=== PATIENT | female | born 2000 | race Asian ===

== ENCOUNTER 2023-08-06 12:43 | Inpatient (IN) | payer BC, SELFPAY ==
--- NOTE | 2023-08-06 12:52 | MHC.CARE ---
CARE Team received a call from Bob Mccabe ?from [facility] ([phone]), ? regarding an expect Sara Wymansixot (she/they) . Pt is a international student from [place]. Pt has been active with the counseling center? over the past 2-3 years. Pt is being followed by a clinician Traci for the past 2 years.? Pt sees her 1-2 times weekly. Pt has chronically struggled with suicidality. Notably over the past few weeks Pt has been increasing suicidal and Traci no longer feels like she can mange the severity of the suicidality. Pt has not been caring for themselves, not showering, eating or? bathing. Pt? friends took away her sharps to the extent of her current depressive symptoms.? Precipitating factor appears to be Pt is graduating in September and has no plans following graduation and feels alot of uncertainty.? Pt is reporting to [facility] staff she voluntary for IPLOC admission.
--- NOTE | 2023-08-06 12:57 | ED.PSYCH ---
HPI - Psych General Chief Complaint: Psychiatric Symptoms Stated Complaint: PSYCH EVAL Time Seen by Provider: 08/06/23 12:48 Source: patient, EMS and RN notes reviewed Mode of arrival: EMS Limitations: no limitations History of Present Illness HPI Narrative: Patient is a 22-year-old female presenting to the emergency department from [facility] with thoughts of suicidal ideation, states she has a plan but is not willing to disclose this. Reports history of depression and suicidal ideation in the past around 1 year ago. She states that she does not currently have a therapist and is not currently on any medications, states she is never taken any psychiatric medications in the past. She denies any homicidal ideation, auditory or visual hallucinations. She denies any physical complaints. She denies any ingestion or self-inflicted injuries. MD complaint: suicidal ideation and feels depressed Onset (ago): day(s) Duration: constant History of same: Yes Associated psychiatric symptoms: depression Associated symptoms: denies other symptoms Treatments prior to arrival: none If self harm: admits thoughts of self harm and has plan (unwilling to disclose details) Related Data Home Medications Medication Instructions Recorded Confirmed No Known Home Meds 08/06/23 08/06/23 Allergies Allergy/AdvReac Type Severity Reaction Status Date / Time No Known Allergies Allergy Verified 08/06/23 13:15 Review of Systems Review of Systems: As per HPI. Yes all other systems are reviewed and are negative Constitutional: Constitutional: Reports as per HPI [facility] Social History Social History (Updated 08/06/23 @ 17:30 by NOELLE De La O) Household Members: Other Household Members Other:: Roommates Housing: Other Housing Other:: Dorm Are you a primary respiratory care program director to a significant other at home: No Do you presently have visiting nurse or other home services: No Smoked in Last 30 Days: No Use of substances other than those prescribed or required for medical reasons: No Advance Directives: No Suicidal Behavior: Pre-occupation with Access to Firearms: No Eating poorly because of decreased appetite: Yes service: No Current occupational status: student Physical Exam Vital Signs: Vital Signs: Last Vital Signs Temp 98.4 F 08/07/23 03:46 Pulse 79 08/07/23 03:46 Resp 16 08/07/23 03:46 BP 100/62 08/07/23 03:46 Pulse Ox 98 08/07/23 03:46 O2 Del Method Room Air 08/07/23 03:46 BMI result Body Mass Index 17.2 Vital signs have been reviewed and appear to be correct. Blood pressure normal. Heart rate normal. Respiratory rate normal. Temperature normal. Oxygen saturation normal. Const: General: cooperative, healthy appearing and no acute distress Orientation/consciousness: oriented to person, oriented to place, oriented to time and patient oriented x3 Limitations: no limitations HEENT: Head: Yes normocephalic and Yes atraumatic Ears: external ears normal General nose exam: Normal external nose present Face and sinus: Yes face symmetric Mouth: oropharynx normal and moist mucous membranes Throat: Yes uvula midline Eyes: Pupils: Equal, round and reactive pupils present Neck: Neck: Yes normal visual inspection and Yes supple Resp: Effort & Inspection: normal respiratory effort and able to speak in complete sentences Auscultation: clear to auscultation bilaterally Cardio: Rate: regular rate Rhythm: regular rhythm Heart sounds: S1 normal heart sound present and S2 normal heart sound present GI: Palpation (GI): Soft to palpation and nontender Auscultation: normoactive bowel sounds : General: Yes no CVA tenderness Back/Spine/Pelvis: Back: no CVA tenderness Skin: General skin exam: elasticity normal and turgor normal Neuro: General: oriented to person, oriented to place, oriented to time, patient oriented x3, moves all extremities, no focal motor deficits and CN's II-XI intact bilaterally Cranial nerves: Yes Equal, round and reactive pupils present Cognition (Neuro): normal cognition Extrem: General: Yes full ROM, Yes no pedal edema and Yes no calf tenderness Psych: Appearance: grossly normal Mental Status: mental status grossly normal Speech and movement: Normal speech and movement present Affect: normal affect Attitude: cooperative Thought process: Normal thought process present Thought content: Suicidality present, no homicidality, no hallucinations and Depressive thoughts present Insight: Fair insight present (Psych) Judgement: Fair judgement present (Psych) Course Reevaluation(s) Reevaluation #1: Per CARE team, patient to be inpatient bed search on Section 12 Time: 15:55 Reevaluation #2: The patient was signed out to me this morning by the overnight physician. The patient is a 22-year-old female who was a student at [facility] she was brought to the hospital because of concerns about suicidal ideation. She is apparently unwilling to talk about her plans for suicide. She is therefore being held in the emergency room on a section 12. During the overnight shift and during the day shift today there have been no acute incidents. Her vital signs are stable. She will be kept in the emergency room on a section 12 pending inpatient psychiatric hospitalization. Medical Decision Making Medical Decision Making [facility] Narrative: Patient is a 22-year-old female presenting to the emergency department from [facility] with thoughts of suicidal ideation, states she has a plan but is not willing to disclose this. On exam patient is awake, A+Ox3, VS WNL, afebrile, normal neurological exam without focal deficits, physical exam findings as above. Given reported symptoms and physical exam findings, initial differential includes depression, anxiety, suicidal ideation. Plan: labs, UA, urine drug screen to clear medically prior to CARE team eval Labs unremarkable. Covid negative. Urine drug screen negative. Will medically clear patient and place on physician observation at this time for CARE team eval. Differential Diagnosis Differential Diagnoses: The differential diagnosis associated with the presentation includes As per [facility] Lab Data [facility] Lab Attestation statement: I reviewed the patient's lab results. As per [facility] 08/06/23 14:19 08/06/23 14:19 Labs: Lab Results 08/06/23 08/06/23 08/06/23 Range/Units 13:28 13:30 14:19 WBC 7.6 (4.8-10.8) X10*3/uL RBC 5.12 (4.20-5.50) X10*6/uL Hgb 15.2 (12.0-16.0) g/dl Hct 44.5 (37.0-47.0) % MCV 86.9 (80.0-98.0) fL MCH 29.7 (27.0-33.0) pg MCHC 34.2 (31.0-35.0) g/dl RDW 11.7 (11.0-16.0) % Plt Count 220 (160-400) X10*3/uL MPV 10.0 (9.4-12.3) fL Immature Gran % (Auto) 0.4 (0.0-0.4) % Neut % (Auto) 77.0 H (45-73) % Lymph % (Auto) 18.1 L (20-40) % [place] % (Auto) 3.4 (2-11) % Eos % (Auto) 0.8 (0-4) % Baso % (Auto) 0.3 (0-2) % Lymph # (Auto) 1.4 (1.2-4.9) X10*3/uL [place] # (Auto) 0.3 (0.1-1.2) X10*3/uL Eos # (Auto) 0.1 (0.0-0.4) X10*3/uL Baso # (Auto) 0.0 (0.0-0.2) X10*3/uL Abs Immat Gran (auto) 0.03 (0.00-0.03) X10*3/uL Absolute Neuts (auto) 5.8 (2.0-8.3) x10*3/uL Absolute Nucleated RBC 0.000 (0.0-0.012) X10*3/uL Nucleated RBC % (auto) 0.0 (0.0-0.2) /100WBC Sodium 138 (135-145) mmol/L Potassium 3.7 (3.3-5.1) mmol/L Chloride 104 (96-108) mmol/L Carbon Dioxide 28 (22-29) mmol/L Anion Gap 10 L (12-20) BUN 9 (9-16) mg/dL Creatinine 0.65 (0.5-1.4) mg/dL Estim Creat Clear Calc 85.7 Estimated GFR > 60 Random Glucose 148 H (60-115) mg/dL Calcium 10.2 (8.4-10.2) mg/dL Total Bilirubin 0.9 (0.0-1.0) mg/dL AST 15 (5-31) U/L ALT 7 (0-31) U/L Alkaline Phosphatase 61 (39-117) U/L Total Protein 8.2 H (6.5-8.0) g/dL Albumin 4.7 (3.5-5.0) g/dL Beta HCG, Quant < 2 mIU/mL Urine Color Yellow Urine Appearance Clear Urine pH 5.5 (5.0-9.0) Ur Specific [place] 1.025 (1.005-1.025) Urine Protein Negative (Neg-Trace) mg/dL Urine Glucose (UA) Negative (Negative) mg/dL Urine Ketones Trace (Negative) mg/dL Urine Blood Negative (Negative) Urine Nitrite Negative (Negative) Ur Leukocyte Esterase Trace H (Negative) Urine RBC 0-2 (0-2) /HPF Urine WBC 0-5 (0-5) /HPF Ur Squamous Epith Cells 3-5 (0-2) /HPF Urine Bacteria None Seen (None Seen) Hyaline Casts 0-2 (0-2) /LPF Salicylates < 5.0 L (15-30) mg/dL Urine Opiates Screen Not Detected (Not Detect) Urine Fentanyl Screen Not Detected (Not Detect) Acetaminophen < 3 (<30) mcg/mL Ur Barbiturates Screen Not Detected (Not Detect) Ur Phencyclidine Scrn Not Detected (Not Detect) Ur Amphetamines Screen Not Detected (Not Detect) U Benzodiazepines Scrn Not Detected (Not Detect) Urine Cocaine Screen Not Detected (Not Detect) U Marijuana (THC) Screen Not Detected (Not Detect) Ethyl Alcohol < 10 mg/dL COVID-19 (MAGEN) Negative (Negative) COVID-19 Clin Com See Note External Record Review External record reviewed: Inpatient record, Office record and Outpatient record Discharge Plan Discharge Clinical Impression: Suicidal ideation, Depression Patient Disposition: Still a Patient Prescriptions: No Action No Known Home Meds Interventions: Isabella-Suicide Risk Severity Scale Last Done: 08/07/23 07:38
[2023-08-06 13:06] VITALS: BP 100/69; BP 118/72; PULSE 88; PULSE 96; RESP 16; TEMP 36.7; O2SAT 97; O2SAT 99; BMI 17.2
[2023-08-06 13:41] LABS: Appearance Urine Clear; Color Urine Yellow; Glucose Urine UA Negative (Negative); Leukocyte Esterase Urine Trace (Negative); Nitrite Urine Negative (Negative); PH 5.5 (5.0-9.0); Specific Gravity - Urine 1.025 (1.005-1.025); UMIC TRIGGER UACC YES; Urine Blood Negative (Negative); Urine Ketones Trace mg/dL (Negative); Urine Protein Negative (Neg-Trace)
[2023-08-06 13:47] LABS: Amphetamine Screen Urine Not Detected (Not Detect); Barbiturates, Urine Not Detected (Not Detect); Benzodiazepines Screen Urine Not Detected (Not Detect); Cannabinoid Screen Urine Not Detected (Not Detect); Cocaine Screen Urine Not Detected (Not Detect); Fentanyl, urine Not Detected (Not Detect); Opiate Screen Urine Not Detected (Not Detect); Phencyclidine Screen Urine Not Detected (Not Detect)
[2023-08-06 13:50] LABS: COVID-19 Test Negative (Negative); IDNOW Serial# 08D9AD1C
[2023-08-06 13:55] LABS: Bacteria Urine None Seen (None Seen); Hyaline Casts Urine 0-2 /LPF (0-2); RBC Urine 0-2 /HPF (0-2); WBC Urine 0-5 /HPF (0-5)
[2023-08-06 14:25] LABS: MANUAL DIFF FLAG NO
[2023-08-06 14:35] LABS: Basophils Percent Auto 0.3 % (0-2); Eosinophils Absolute Auto 0.1 X10*3/uL (0.0-0.4); Eosinophils Percent Auto 0.8 % (0-4); Hematocrit 44.5 % (37.0-47.0); Hemoglobin 15.2 g/dl (12.0-16.0); Imm Gran Abs Auto 0.03 X10*3/uL (0.00-0.03); Imm Gran Pct Auto 0.4 % (0.0-0.4); Lymphocytes Absolute Auto 1.4 X10*3/uL (1.2-4.9); Lymphocytes Percent Auto 18.1 % (20-40); Mean Corpuscular HGB Conc 34.2 g/dl (31.0-35.0); Mean Corpuscular Hemoglobin 29.7 pg (27.0-33.0); Mean Corpuscular Volume 86.9 fL (80.0-98.0); Monocytes Absolute Auto 0.3 X10*3/uL (0.1-1.2); Monocytes Percent Auto 3.4 % (2-11); Neutrophils Absolute Auto 5.8 x10*3/uL (2.0-8.3); Platelet Count 220 X10*3/uL (160-400); Red Blood Count 5.12 X10*6/uL (4.20-5.50); Red Cell Distribution Width 11.7 % (11.0-16.0); White Blood Count 7.6 X10*3/uL (4.8-10.8)
[2023-08-06 14:49] LABS: HCG Quantitative < 2 mIU/mL
[2023-08-06 14:58] LABS: Acetaminophen LAB < 3 mcg/mL (<30); Alanine Aminotransferase 7 U/L (0-31); Albumin Level 4.7 g/dL (3.5-5.0); Alkaline Phosphatase 61 U/L (39-117); Anion Gap 10 (12-20); Aspartate Amino Transferase 15 U/L (5-31); Bilirubin Total 0.9 mg/dL (0.0-1.0); Blood Urea Nitrogen 9 mg/dL (9-16); Calcium 10.2 mg/dL (8.4-10.2); Carbon Dioxide 28 mmol/L (22-29); Chloride 104 mmol/L (96-108); Creatinine Clr Calc Pharmacy 85.7; Estimated Glomerular Filt Rate > 60; Ethanol < 10 mg/dL; Glucose Random 148 mg/dL (60-115); Potassium 3.7 mmol/L (3.3-5.1); Salicylate < 5.0 mg/dL (15-30); Sodium 138 mmol/L (135-145); Total Protein 8.2 g/dL (6.5-8.0)
--- NOTE | 2023-08-06 16:51 | PC.NURSE ---
pt a&o x4, calm, and cooperative. pt comes from [facility] where pt has been having recent thoughts of SI with plan. when asked about plan, pt sts she does not want to talk about it and that she has attempted suicide in the past, about a year ago. pt changed over to hospital attire, belongings list complete and belongings stowed in locker #2. plan per Silvana is that pt will be a bed search. pt currently resting quietly in room, no distress noted. rr even/unlabored. plan of care ongoing.
--- NOTE | 2023-08-06 17:45 | MHC.CARE ---
CARE Team evaluation complete. Pt is an inpatient bedsearch on a section 12 for safety. ED provider, POD RN and Pt are aware of disposition.
[2023-08-06 21:48] VITALS: BP 103/70; PULSE 86; RESP 18; TEMP 37.4; O2SAT 98
[2023-08-06 23:11] VITALS: BP 98/64; PULSE 85; TEMP 36.4; O2SAT 99
--- NOTE | 2023-08-07 03:08 | PC.NURSE ---
Assumed care of pt at 0300. PT resting quietly, reading, respirations even and unlabored. Plan of care ongoing
[2023-08-07 03:46] VITALS: BP 100/62; PULSE 79; RESP 16; TEMP 36.9; O2SAT 98
--- NOTE | 2023-08-07 08:21 | PC.NURSE ---
Assumed care of patient at 0700, patient appears to be sleeping, respirations even and unlabored, no apparent distress. Continue plan of care form Sec 12 inpatient bedsearch
--- NOTE | 2023-08-07 13:04 | PC.NURSE ---
Patient ambulating around BH pod without issue, respirations even and unlabored, no apparent distress. Offers no complaints to this RN. Patient is calm and cooperative, continues to endorse SI, aware of plan of care
--- NOTE | 2023-08-07 14:04 | MHC.CARE ---
patient seen for mental status update/ ongoing CARE assessment , continues to appear to meet inpt LOC and at time of t/w is voluntary for inpatient.
[2023-08-07 20:08] VITALS: BP 107/74; PULSE 100; RESP 15; TEMP 36.8; O2SAT 100
--- NOTE | 2023-08-07 20:27 | PC.NURSE ---
patient appears to remain at rest periodically makes requests of staff for recreational materials. patient appears in no distress.
[2023-08-07 23:33] VITALS: BP 107/70; PULSE 75; RESP 16; TEMP 37.1; O2SAT 100
--- NOTE | 2023-08-08 08:21 | PC.NURSE ---
Assumed care of patient at 0700, patient appears to be sleeping, respirations even and unlabored, no apparent distress noted. Continue plan of care for inpatient bedsearch on Sec 12
[2023-08-08 09:23] VITALS: BP 108/78; PULSE 92; RESP 12; TEMP 36.5; O2SAT 98
[2023-08-08 12:06] VITALS: BP 92/66; PULSE 98; RESP 18; TEMP 36.4; O2SAT 97
--- NOTE | 2023-08-08 12:10 | PC.NURSE ---
Pt arrived on the unit a 11:35 from our pod. Pt calm and cooperative. Vitals taken, skin check done. Pt oriented to the unit, filled out lunch menu and sat in the kitchen with peers.
--- NOTE | 2023-08-08 12:23 | PC.NURSE ---
Patient is a non-smoker and will not require Respiratory consult.
--- NOTE | 2023-08-08 17:18 | PC.ADMIT ---
Sara was admitted to [facility] at 11:35 from the [facility] behavioral health POD on CV for treatment of SI with a plan and poor self care. 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 Pt is slated to graduate this May however disclosed that she may not be able to due to grades. PT disclosed to a therapist on campus her intent and help was called. Pt is alert and oriented, calm and cooperative and open to treatment before depressive and SI become unmanageable. Patient is concerned about her parents reaction to difficulties in school and with mental health. Patient has insight into her situation, is aware of decline in appetite and self care, as well as SI and desires treatment. Patient has no previous mental health treatment or hospitalizations, has no current medications, drinks alcohol socially approximately 1x per month. Patient reports decline in appetite and nausea upon eating and trouble following through with ADL's, (poor hygiene, oral health). Patient oriented to the unit and placed on 15 minute checks for safety.
[2023-08-08 21:25] VITALS: BP 113/85; PULSE 88; RESP 16; TEMP 36.7; O2SAT 99
[2023-08-09 07:30] VITALS: BP 88/55; PULSE 92; RESP 18; TEMP 36.1; O2SAT 92
[2023-08-09 07:32] LABS: Cholesterol 166 mg/dL (<200); HDL Cholesterol 56 mg/dL (>40); LDL Cholesterol Calculated 104 mg/dL (<100); Magnesium 2.1 mg/dL (1.6-2.6); Triglycerides 32 mg/dL (<150)
[2023-08-09 07:37] LABS: Estimated Average Glucose 88 mg/dL; Hemoglobin A1c % 4.7 % (<6.0)
[2023-08-09 07:46] LABS: Free T4 (Free Thyroxine) 0.91 ng/dL (0.71-1.85); Thyroid Stimulating Hormone 1.86 uIU/mL (0.32-4.0)
[2023-08-09 07:58] LABS: Folate 8.2 ng/mL (> or = 4.0); Vitamin B12 378 pg/mL (200-900)
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
[2023-08-09] MEDS: Escitalopram Oxalate 10 MG TABLET PO (10:28)
[2023-08-09 16:17] VITALS: BP 102/63; PULSE 77; RESP 16; TEMP 36.1; O2SAT 99
[2023-08-10] MEDS: traZODone HCL 50 MG TABLET PO (00:09)
--- NOTE | 2023-08-10 02:42 | PC.NURSE ---
Sara signed at three-day notice on 08/10/23 at 0055 witnessed by this magazine writer. Messages have been left for the provider (Dr. Villa), social media community manager (Gi Patterson), and military education coordinator (Gi Whyte) informing them of the change in legal status.
[2023-08-10 08:00] VITALS: BP 97/54; PULSE 93; RESP 16; TEMP 36.7; O2SAT 97
--- NOTE | 2023-08-10 09:19 | HO.PSYCHPN ---
Subjective Subjective Date of Service: 08/10/23 Reason For Visit: Depression with SI Subjective Notes: Conditional Voluntary and 3 Day Healthcare Proxy: No Guardianship: No Medical Problems Affecting Mental Status: No Interim History: Patient was seen and reviewed in rounds today. Records and plans were reviewed. She has settled in to the unit however she signed a 3 day notice last evening. We did talk about that and she will think about retracting it. She denies any side effects to the Lexapro. Eating and sleeping adequately. No active SI. No changes were made today Medication Compliance: Yes Side effects from medications: No Attending Groups: Yes Review of Systems Review of Systems Yes all other systems are reviewed and are negative Mental Status Exam Mental Status Exam Narrative: In today's visit she is alert, oriented and pleasant. Normal speech. Better eye contact. Affect is appropriate and subdued. No signs of psychosis. No active SI but vague SI. Cognitively intact. Judgment is intact Diagnostics Vital Signs (24Hr): Vital Signs - 24 hr 08/09/23 16:17 08/10/23 08:00 Temperature 97 F 98.1 F Pulse Rate 77 93 Respiratory Rate 16 16 Blood Pressure 102/63 97/54 L Pulse Oximetry 99 97 Oxygen Delivery Method Room Air Room Air BMI result Body Mass Index 17.2 Labs 08/06/23 14:19 08/06/23 14:19 Labs: Laboratory Results - last 48 hr 08/09/23 07:05 Estimat Average Glucose 88 Hemoglobin A1c % 4.7 Magnesium 2.1 Triglycerides 32 Cholesterol 166 LDL Cholesterol, Calc 104 H HDL Cholesterol 56 Vitamin B12 378 Folate 8.2 TSH 1.86 Free T4 0.91 Medications Medications Current Medications Acetaminophen (Acetaminophen 325 Mg Tablet) 650 mg PO Q6H PRN PRN Reason: Headache/Pain Mild Scale (1-3) Al Hydroxide/Mg Hydroxide (Magnesium Hydrox/Alum Hydrox 30 Ml Oral.Susp) 30 ml PO Q6H PRN PRN Reason: Heartburn/Nausea Hydroxyzine HCl (Hydroxyzine Hcl 25 Mg Tablet) 25 mg PO Q6H PRN PRN Reason: Anxiety Magnesium Hydroxide (Milk Of Magnesia 30 Ml Oral.Susp) 30 ml PO DAILY PRN PRN Reason: Constipation Trazodone HCl (Trazodone Hcl 50 Mg Tablet) 50 mg PO BEDTIME MRX1 PRN PRN Reason: Insomnia Last Admin: 08/10/23 00:09 Dose: 50 mg Allergies Allergies Allergy/AdvReac Type Severity Reaction Status Date / Time No Known Allergies Allergy Verified 08/06/23 13:15 Assessment & Plan Assessment & Plan (1) Depression: Status: Acute Code(s): F32.A - Depression, unspecified (2) Suicidal ideation: Status: Acute Code(s): R45.851 - Suicidal ideations Plan Sara is admitted and meets criteria for IP LOC for safety and treatment. She has signed a CV which was accepted. We discussed medications and is interested in a trial of Celexa 10 mg which will be initiated. Side effects were reviewed. Contacts to be made with the collagen her therapist. She will meet with her treatment team on 08/11/23 08/10/2023: Continue current regimen and plans. A 3 day notice was signed last evening Patient educated on: medication risk/benefits Reason for continued inpatient stay Substantial Risk for: harm to self Time Spent With Patient Time: Total time managing care of this patient today ____ minutes.
[2023-08-10] MEDS: Escitalopram Oxalate 10 MG TABLET PO (10:21)
[2023-08-10 17:00] VITALS: BP 102/55; PULSE 88; RESP 16; TEMP 36.3; O2SAT 98
[2023-08-11 07:30] VITALS: BP 111/60; PULSE 76; RESP 18; TEMP 36.4; O2SAT 98
[2023-08-11] MEDS: Escitalopram Oxalate 10 MG TABLET PO (08:35)
--- NOTE | 2023-08-11 17:26 | HO.PSYCHPN ---
Subjective Subjective Date of Service: 08/11/23 Reason For Visit: Depression with SI Subjective Notes: Conditional Voluntary and 3 Day Healthcare Proxy: No Guardianship: No Medical Problems Affecting Mental Status: No Interim History: Reports lifelong depressive sx, has always thought that others hate them, thoughts come in and they can focus so no other thoughts can enter. Describes eating, sleeping, ADL attention, basic functional tasks with empty space which is not good for them. I cannot have anything that leaves my head blank. States they have to go until they cannot any longer and blanks out. Has tried journaling, coloring, art projects, meditation, exercise, martial arts-nothing is helpful. Acknowledges racing thoughts which are overwhelming most of the time. Discussed current course work. Has a class where they had one paper due on the day they were admitted with another due shortly. Another class where a paper was due a week before admit and one class where they are missing everything. 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 They will allow contact with their academic team. Review of meds, discussed adding Lamictal to assist with racing thoughts, antipsychotic may be necessary,however we can trial this first which they agree with. Medication Compliance: Yes Side effects from medications: No Attending Groups: Intermittent Review of Systems Acute medical concerns: No Medical Review of Systems: unchanged Review of Systems Review of Systems Yes all other systems are reviewed and are negative Mental Status Exam Mental Status Exam Patient Appearance: Fatigued Patient Orientation: Person, Place, Time and Situation Level of Consciousness: Alert Patient Behavior: Appropriate, Talkative, Cooperative, Isolative and Good Eye Contact Mood Description: Depressed Affect Description: Flat Patient Cognition Impaired: No Ability to Follow Directions: Good Speech Pattern: Perseverating, Spontaneous Speech and Soft-Spoken Memory Description: Intact Hallucinations: Auditory (tells team yes, her voice telling her things) Perceptual Disturbances: Depersonalization Thought Process: Rumination Thought Content: positive for Circumstantial, positive for Perseveration, positive for Preoccupation and positive for Suicidal Ideation Depressive Symptoms: Difficulty Sleeping (latency), Hopelessness, Unhappiness, Thoughts of /Suicide and Low Self Esteem Judgement: Fair Diagnostics Vital Signs (24Hr): Vital Signs - 24 hr 08/11/23 07:30 Temperature 97.5 F Pulse Rate 76 Respiratory Rate 18 Blood Pressure 111/60 Pulse Oximetry 98 Oxygen Delivery Method Room Air BMI result Body Mass Index 17.2 Labs 08/06/23 14:19 08/06/23 14:19 Medications Medications Current Medications Acetaminophen (Acetaminophen 325 Mg Tablet) 650 mg PO Q6H PRN PRN Reason: Headache/Pain Mild Scale (1-3) Al Hydroxide/Mg Hydroxide (Magnesium Hydrox/Alum Hydrox 30 Ml Oral.Susp) 30 ml PO Q6H PRN PRN Reason: Heartburn/Nausea Escitalopram Oxalate (Escitalopram Oxalate 10 Mg Tablet) 10 mg PO DAILY [facility] Last Admin: 08/11/23 08:35 Dose: 10 mg Hydroxyzine HCl (Hydroxyzine Hcl 25 Mg Tablet) 25 mg PO Q6H PRN PRN Reason: Anxiety Magnesium Hydroxide (Milk Of Magnesia 30 Ml Oral.Susp) 30 ml PO DAILY PRN PRN Reason: Constipation Trazodone HCl (Trazodone Hcl 50 Mg Tablet) 50 mg PO BEDTIME MRX1 PRN PRN Reason: Insomnia Last Admin: 08/10/23 00:09 Dose: 50 mg Allergies Allergies Allergy/AdvReac Type Severity Reaction Status Date / Time No Known Allergies Allergy Verified 08/06/23 13:15 Assessment & Plan Assessment & Plan (1) Depression: Status: Acute Code(s): F32.A - Depression, unspecified (2) Suicidal ideation: Status: Acute Code(s): R45.851 - Suicidal ideations Plan Sara is admitted and meets criteria for IP LOC for safety and treatment. She has signed a CV which was accepted. We discussed medications and is interested in a trial of Celexa 10 mg which will be initiated. Side effects were reviewed. Contacts to be made with the [facility] her therapist. She will meet with her treatment team on 08/11/23 08/10/2023: Continue current regimen and plans. A 3 day notice was signed last evening 08/11/23: Continue Lexapro. Lamictal 25 mg HS. Patient educated on: medication risk/benefits Informed Consent: understands and further education needed Reason for continued inpatient stay Substantial Risk for: rapid decompensation Time Spent With Patient Time: Total time managing care of this patient today ____ minutes.
[2023-08-11 18:00] VITALS: BP 119/89; PULSE 88; RESP 18; TEMP 36.8; O2SAT 97
[2023-08-11] MEDS: lamoTRIgine 25 MG TABLET PO (21:05)
[2023-08-12 07:58] VITALS: BP 95/56; PULSE 91; RESP 18; TEMP 36.3; O2SAT 98
[2023-08-12] MEDS: Escitalopram Oxalate 10 MG TABLET PO (09:06)
--- NOTE | 2023-08-12 09:56 | P.PNPSI_ITS ---
Subjective Subjective Date of Service: 08/12/23 Reason For Visit: Depression with SI Subjective Notes: Conditional Voluntary and 3 Day Healthcare Proxy: No Guardianship: No Medical Problems Affecting Mental Status: No Interim History: Pt discussed wanting to leave on a TDN which expires on 08/12. 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 She wants to return to do course work. Reports no real change in depressive or anxious sx, however, today, feels more anxious and on edge. Tolerating medications she reports. Team is in contact with family/university. Pt was asked to reformulate her plan of care and we will continue discussion. Reports SI is persistant without changes. Medication Compliance: Yes Side effects from medications: No Attending Groups: Intermittent Review of Systems Acute medical concerns: No Medical Review of Systems: unchanged Review of Systems Review of Systems Yes all other systems are reviewed and are negative Mental Status Exam Mental Status Exam Patient Appearance: Fatigued Patient Orientation: Person, Place, Time and Situation Level of Consciousness: Alert Patient Behavior: Appropriate, Talkative, Cooperative, Isolative and Good Eye Contact Mood Description: Depressed Affect Description: Flat Patient Cognition Impaired: No Ability to Follow Directions: Good Speech Pattern: Perseverating, Spontaneous Speech and Soft-Spoken Memory Description: Intact Hallucinations: Auditory (tells team yes, her voice telling her things) Perceptual Disturbances: Depersonalization Thought Process: Rumination Thought Content: positive for Circumstantial, positive for Perseveration, positive for Preoccupation and positive for Suicidal Ideation Depressive Symptoms: Difficulty Sleeping (latency), Hopelessness, Unhappiness, Thoughts of /Suicide and Low Self Esteem Judgement: Fair Diagnostics Vital Signs (24Hr): Vital Signs - 24 hr 08/11/23 18:00 08/12/23 07:58 Temperature 98.2 F 97.3 F Pulse Rate 88 91 Respiratory Rate 18 18 Blood Pressure 119/89 95/56 L Pulse Oximetry 97 98 Oxygen Delivery Method Room Air Room Air BMI result Body Mass Index 17.2 Labs 08/06/23 14:19 08/06/23 14:19 Medications Medications Current Medications Acetaminophen (Acetaminophen 325 Mg Tablet) 650 mg PO Q6H PRN PRN Reason: Headache/Pain Mild Scale (1-3) Al Hydroxide/Mg Hydroxide (Magnesium Hydrox/Alum Hydrox 30 Ml Oral.Susp) 30 ml PO Q6H PRN PRN Reason: Heartburn/Nausea Escitalopram Oxalate (Escitalopram Oxalate 10 Mg Tablet) 10 mg PO DAILY [facility] Last Admin: 08/12/23 09:06 Dose: 10 mg Hydroxyzine HCl (Hydroxyzine Hcl 25 Mg Tablet) 25 mg PO Q6H PRN PRN Reason: Anxiety Lamotrigine (Lamotrigine 25 Mg Tablet) 25 mg PO BEDTIME [facility] Last Admin: 08/11/23 21:05 Dose: 25 mg Magnesium Hydroxide (Milk Of Magnesia 30 Ml Oral.Susp) 30 ml PO DAILY PRN PRN Reason: Constipation Trazodone HCl (Trazodone Hcl 50 Mg Tablet) 50 mg PO BEDTIME MRX1 PRN PRN Reason: Insomnia Last Admin: 08/10/23 00:09 Dose: 50 mg Allergies Allergies Allergy/AdvReac Type Severity Reaction Status Date / Time No Known Allergies Allergy Verified 08/06/23 13:15 Assessment & Plan Assessment & Plan (1) Depression: Status: Acute Code(s): F32.A - Depression, unspecified (2) Suicidal ideation: Status: Acute Code(s): R45.851 - Suicidal ideations Plan Sara is admitted and meets criteria for IP LOC for safety and treatment. She has signed a CV which was accepted. We discussed medications and is interested in a trial of Celexa 10 mg which will be initiated. Side effects were reviewed. Contacts to be made with the [facility] her therapist. She will meet with her treatment team on 08/11/23 08/10/2023: Continue current regimen and plans. A 3 day notice was signed last evening 08/11/23: Continue Lexapro. Lamictal 25 mg HS. 08/12/23: Continue plan/regime. Risperdal 0.5 mg bid prn voices, agitation. Patient educated on: medication risk/benefits Informed Consent: understands and further education needed Reason for continued inpatient stay Substantial Risk for: rapid decompensation Time Spent With Patient Time: Total time managing care of this patient today ____ minutes.
[2023-08-12 16:33] VITALS: BP 100/63; PULSE 78; RESP 18; TEMP 36.4; O2SAT 98
[2023-08-12] MEDS: lamoTRIgine 25 MG TABLET PO (19:50)
[2023-08-13 08:08] VITALS: BP 101/55; PULSE 90; RESP 16; TEMP 36; O2SAT 97
[2023-08-13] MEDS: Escitalopram Oxalate 10 MG TABLET PO (10:06)
--- NOTE | 2023-08-13 16:42 | HO.PSYCHPN ---
Subjective Subjective Date of Service: 08/13/23 Reason For Visit: Depression with SI Subjective Notes: Conditional Voluntary and 3 Day (retracted) Healthcare Proxy: No Guardianship: No Medical Problems Affecting Mental Status: No Interim History: Retraction of three day notice. Tolerating Lexapro, Lamictal Has not tried Risperdal for voices yet. Spending most of the day in bed, sleeping or reading. Attended one group. Encouraged her to increase milieu contact, engagement, participation. Medication Compliance: Yes Side effects from medications: No Attending Groups: Intermittent Review of Systems Acute medical concerns: No Medical Review of Systems: unchanged Review of Systems Review of Systems Yes all other systems are reviewed and are negative Mental Status Exam Mental Status Exam Patient Appearance: Fatigued Patient Orientation: Person, Place, Time and Situation Level of Consciousness: Alert Patient Behavior: Appropriate, Talkative, Cooperative, Isolative and Good Eye Contact Mood Description: Depressed Affect Description: Flat Patient Cognition Impaired: No Ability to Follow Directions: Good Speech Pattern: Perseverating, Spontaneous Speech and Soft-Spoken Memory Description: Intact Hallucinations: Auditory (tells team yes, her voice telling her things) Perceptual Disturbances: Depersonalization Thought Process: Rumination Thought Content: positive for Circumstantial, positive for Perseveration, positive for Preoccupation and positive for Suicidal Ideation Depressive Symptoms: Difficulty Sleeping (latency), Hopelessness, Unhappiness, Thoughts of /Suicide and Low Self Esteem Judgement: Fair Diagnostics Vital Signs (24Hr): Vital Signs - 24 hr 08/13/23 08:08 Temperature 96.8 F Pulse Rate 90 Respiratory Rate 16 Blood Pressure 101/55 L Pulse Oximetry 97 Oxygen Delivery Method Room Air BMI result Body Mass Index 17.2 Labs 08/06/23 14:19 08/06/23 14:19 Medications Medications Current Medications Acetaminophen (Acetaminophen 325 Mg Tablet) 650 mg PO Q6H PRN PRN Reason: Headache/Pain Mild Scale (1-3) Al Hydroxide/Mg Hydroxide (Magnesium Hydrox/Alum Hydrox 30 Ml Oral.Susp) 30 ml PO Q6H PRN PRN Reason: Heartburn/Nausea Escitalopram Oxalate (Escitalopram Oxalate 10 Mg Tablet) 10 mg PO DAILY [facility] Last Admin: 08/13/23 10:06 Dose: 10 mg Hydroxyzine HCl (Hydroxyzine Hcl 25 Mg Tablet) 25 mg PO Q6H PRN PRN Reason: Anxiety Lamotrigine (Lamotrigine 25 Mg Tablet) 25 mg PO BEDTIME [facility] Last Admin: 08/12/23 19:50 Dose: 25 mg Magnesium Hydroxide (Milk Of Magnesia 30 Ml Oral.Susp) 30 ml PO DAILY PRN PRN Reason: Constipation Risperidone (Risperidone 0.5 Mg Tablet) 0.5 mg PO BID PRN PRN Reason: voices, agitation Trazodone HCl (Trazodone Hcl 50 Mg Tablet) 50 mg PO BEDTIME MRX1 PRN PRN Reason: Insomnia Last Admin: 08/10/23 00:09 Dose: 50 mg Allergies Allergies Allergy/AdvReac Type Severity Reaction Status Date / Time No Known Allergies Allergy Verified 08/06/23 13:15 Assessment & Plan Assessment & Plan (1) Depression: Status: Acute Code(s): F32.A - Depression, unspecified (2) Suicidal ideation: Status: Acute Code(s): R45.851 - Suicidal ideations Plan Sara is admitted and meets criteria for IP LOC for safety and treatment. She has signed a CV which was accepted. We discussed medications and is interested in a trial of Celexa 10 mg which will be initiated. Side effects were reviewed. Contacts to be made with the [facility] her therapist. She will meet with her treatment team on 08/11/23 08/10/2023: Continue current regimen and plans. A 3 day notice was signed last evening 08/11/23: Continue Lexapro. Lamictal 25 mg HS. 08/12/23: Continue plan/regime. Risperdal 0.5 mg bid prn voices, agitation. 08/13/23: Continue tx. Informed Consent: understands and further education needed Reason for continued inpatient stay Substantial Risk for: rapid decompensation Time Spent With Patient Time: Total time managing care of this patient today ____ minutes.
[2023-08-13 19:03] VITALS: BP 101/64; PULSE 107; RESP 18; TEMP 36.3; O2SAT 96
[2023-08-13] MEDS: lamoTRIgine 25 MG TABLET PO (20:34)
[2023-08-14 06:00] VITALS: BP 95/54; PULSE 79; RESP 18; TEMP 36.4; O2SAT 98
[2023-08-14 07:00] VITALS: BMI 18.1
[2023-08-14] MEDS: Escitalopram Oxalate 10 MG TABLET PO (08:10)
--- NOTE | 2023-08-14 13:12 | P.PNPSI_ITS ---
Subjective Subjective Date of Service: 08/14/23 Reason For Visit: Depression with SI Subjective Notes: Conditional Voluntary Healthcare Proxy: No Guardianship: No Medical Problems Affecting Mental Status: No Interim History: Message left for pt's psychologist Candido of [employer]. Met with pt and [facility]. Pt asking about going home. She reports that she is tolerating medications. She is reporting no change in symptoms actually and reports that she needs to have her time/space continually structured as she is unable to tolerate empty space. SI is persistant, chronic, and present for years. She will allow contact with family, asks that we provide minimal information as she finds they can be stressful. She reports concern about coursework. She is wanting to complete her work, graduate and return home, yet is ambivalent. Encouraged to continue milieu participation. Medication Compliance: Yes Side effects from medications: No Attending Groups: Intermittent Review of Systems Acute medical concerns: No Medical Review of Systems: unchanged Review of Systems Review of Systems Yes all other systems are reviewed and are negative Mental Status Exam Mental Status Exam Patient Appearance: Fatigued Patient Orientation: Person, Place, Time and Situation Level of Consciousness: Alert Patient Behavior: Appropriate, Talkative, Cooperative, Isolative and Good Eye Contact Mood Description: Depressed Affect Description: Flat Patient Cognition Impaired: No Ability to Follow Directions: Good Speech Pattern: Perseverating, Spontaneous Speech and Soft-Spoken Memory Description: Intact Hallucinations: Auditory (tells team yes, her voice telling her things) Perceptual Disturbances: Depersonalization Thought Process: Rumination Thought Content: positive for Circumstantial, positive for Perseveration, positive for Preoccupation and positive for Suicidal Ideation Depressive Symptoms: Difficulty Sleeping (latency), Hopelessness, Unhappiness, Thoughts of /Suicide and Low Self Esteem Judgement: Fair Diagnostics Vital Signs (24Hr): Vital Signs - 24 hr 08/13/23 19:03 08/14/23 06:00 Temperature 97.4 F 97.6 F Pulse Rate 107 H 79 Respiratory Rate 18 18 Blood Pressure 101/64 95/54 L Pulse Oximetry 96 98 Oxygen Delivery Method Room Air BMI result Body Mass Index 18.1 Labs 08/06/23 14:19 08/06/23 14:19 Medications Medications Current Medications Acetaminophen (Acetaminophen 325 Mg Tablet) 650 mg PO Q6H PRN PRN Reason: Headache/Pain Mild Scale (1-3) Al Hydroxide/Mg Hydroxide (Magnesium Hydrox/Alum Hydrox 30 Ml Oral.Susp) 30 ml PO Q6H PRN PRN Reason: Heartburn/Nausea Escitalopram Oxalate (Escitalopram Oxalate 10 Mg Tablet) 10 mg PO DAILY [facility] Last Admin: 08/14/23 08:10 Dose: 10 mg Hydroxyzine HCl (Hydroxyzine Hcl 25 Mg Tablet) 25 mg PO Q6H PRN PRN Reason: Anxiety Lamotrigine (Lamotrigine 25 Mg Tablet) 25 mg PO BEDTIME [facility] Last Admin: 08/13/23 20:34 Dose: 25 mg Magnesium Hydroxide (Milk Of Magnesia 30 Ml Oral.Susp) 30 ml PO DAILY PRN PRN Reason: Constipation Risperidone (Risperidone 0.5 Mg Tablet) 0.5 mg PO BID PRN PRN Reason: voices, agitation Trazodone HCl (Trazodone Hcl 50 Mg Tablet) 50 mg PO BEDTIME MRX1 PRN PRN Reason: Insomnia Last Admin: 08/10/23 00:09 Dose: 50 mg Allergies Allergies Allergy/AdvReac Type Severity Reaction Status Date / Time No Known Allergies Allergy Verified 08/06/23 13:15 Assessment & Plan Assessment & Plan (1) Depression: Status: Acute Code(s): F32.A - Depression, unspecified (2) Suicidal ideation: Status: Acute Code(s): R45.851 - Suicidal ideations Plan Sara is admitted and meets criteria for IP LOC for safety and treatment. She has signed a CV which was accepted. We discussed medications and is interested in a trial of Celexa 10 mg which will be initiated. Side effects were reviewed. Contacts to be made with the [facility] her therapist. She will meet with her treatment team on 08/11/23 08/10/2023: Continue current regimen and plans. A 3 day notice was signed last evening 08/11/23: Continue Lexapro. Lamictal 25 mg HS. 08/12/23: Continue plan/regime. Risperdal 0.5 mg bid prn voices, agitation. 08/13/23: Continue tx. 08/14/23: Message left for pt's academic team to review specifications for her return Encourage increase milieu treatment. Patient educated on: therapeutic strategies Informed Consent: understands Reason for continued inpatient stay Substantial Risk for: rapid decompensation Time Spent With Patient Time: Total time managing care of this patient today ____ minutes.
[2023-08-14 18:00] VITALS: BP 106/73; PULSE 86; RESP 18; TEMP 36.6; O2SAT 99
[2023-08-14] MEDS: lamoTRIgine 25 MG TABLET PO (22:03)
[2023-08-15 08:29] VITALS: BP 95/55; PULSE 90; RESP 18; TEMP 36.7; O2SAT 99
[2023-08-15] MEDS: Escitalopram Oxalate 10 MG TABLET PO (09:16)
--- NOTE | 2023-08-15 18:07 | HO.PSYCHPN ---
Subjective Subjective Date of Service: 08/15/23 Reason For Visit: Depression with SI Subjective Notes: Conditional Voluntary Healthcare Proxy: No Guardianship: No Medical Problems Affecting Mental Status: No Interim History: Team has heard from pt's psychologist from [employer], Candido. It is recommended for pt to take a medical LYNDSAY and return 2023. This is NOT a mandate. Pt has 3 classes to complete. Two classes can be completed, however this will require much work and effort due to pt not attending classes. The third class pt has missed too much work and will need to withdraw. 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 Her academic team is willing to work with her if she chooses to return. If she will return she will need to meet with Candido before returning to class. Pt understanding of this information. She plans to return. Asks to leave on 08/17. Believes she will be able to catch up and wants to talk with her professor before they withdraw her from her third class. Pt asked to take time this weekend to give this some thought. Medication Compliance: Yes Side effects from medications: No Attending Groups: Intermittent Review of Systems Acute medical concerns: No Medical Review of Systems: unchanged Review of Systems Review of Systems Yes all other systems are reviewed and are negative Mental Status Exam Mental Status Exam Patient Appearance: Fatigued Patient Orientation: Person, Place, Time and Situation Level of Consciousness: Alert Patient Behavior: Appropriate, Talkative, Cooperative, Isolative and Good Eye Contact Mood Description: Depressed Affect Description: Flat Patient Cognition Impaired: No Ability to Follow Directions: Good Speech Pattern: Perseverating, Spontaneous Speech and Soft-Spoken Memory Description: Intact Hallucinations: Auditory (tells team yes, her voice telling her things) Perceptual Disturbances: Depersonalization Thought Process: Rumination Thought Content: positive for Circumstantial, positive for Perseveration, positive for Preoccupation and positive for Suicidal Ideation Depressive Symptoms: Difficulty Sleeping (latency), Hopelessness, Unhappiness, Thoughts of /Suicide and Low Self Esteem Judgement: Fair Diagnostics Vital Signs (24Hr): Vital Signs - 24 hr 08/15/23 08:29 Temperature 98.1 F Pulse Rate 90 Respiratory Rate 18 Blood Pressure 95/55 L Pulse Oximetry 99 Oxygen Delivery Method Room Air BMI result Body Mass Index 18.1 Labs 08/06/23 14:19 08/06/23 14:19 Medications Medications Current Medications Acetaminophen (Acetaminophen 325 Mg Tablet) 650 mg PO Q6H PRN PRN Reason: Headache/Pain Mild Scale (1-3) Al Hydroxide/Mg Hydroxide (Magnesium Hydrox/Alum Hydrox 30 Ml Oral.Susp) 30 ml PO Q6H PRN PRN Reason: Heartburn/Nausea Escitalopram Oxalate (Escitalopram Oxalate 10 Mg Tablet) 10 mg PO DAILY [facility] Last Admin: 08/15/23 09:16 Dose: 10 mg Hydroxyzine HCl (Hydroxyzine Hcl 25 Mg Tablet) 25 mg PO Q6H PRN PRN Reason: Anxiety Lamotrigine (Lamotrigine 25 Mg Tablet) 25 mg PO BEDTIME [facility] Last Admin: 08/14/23 22:03 Dose: 25 mg Magnesium Hydroxide (Milk Of Magnesia 30 Ml Oral.Susp) 30 ml PO DAILY PRN PRN Reason: Constipation Risperidone (Risperidone 0.5 Mg Tablet) 0.5 mg PO BID PRN PRN Reason: voices, agitation Trazodone HCl (Trazodone Hcl 50 Mg Tablet) 50 mg PO BEDTIME MRX1 PRN PRN Reason: Insomnia Last Admin: 08/10/23 00:09 Dose: 50 mg Allergies Allergies Allergy/AdvReac Type Severity Reaction Status Date / Time No Known Allergies Allergy Verified 08/06/23 13:15 Assessment & Plan Assessment & Plan (1) Depression: Status: Acute Code(s): F32.A - Depression, unspecified (2) Suicidal ideation: Status: Acute Code(s): R45.851 - Suicidal ideations Plan Sara is admitted and meets criteria for IP LOC for safety and treatment. She has signed a CV which was accepted. We discussed medications and is interested in a trial of Celexa 10 mg which will be initiated. Side effects were reviewed. Contacts to be made with the [facility] her therapist. She will meet with her treatment team on 08/11/23 08/10/2023: Continue current regimen and plans. A 3 day notice was signed last evening 08/11/23: Continue Lexapro. Lamictal 25 mg HS. 08/12/23: Continue plan/regime. Risperdal 0.5 mg bid prn voices, agitation. 08/13/23: Continue tx. 08/14/23: Message left for pt's academic team to review specifications for her return Encourage increase milieu treatment. 08/15/23: Pt given specifics today regarding a return to classes. Encouraged to shower. Encouraged to trial Risperdal prn to assess efficacy on sx mgt. Patient educated on: therapeutic strategies Informed Consent: understands and further education needed Reason for continued inpatient stay Substantial Risk for: rapid decompensation Time Spent With Patient Time: Total time managing care of this patient today ____ minutes.
[2023-08-15 20:10] VITALS: BP 101/66; PULSE 90; RESP 16; TEMP 36.6; O2SAT 100
[2023-08-15] MEDS: lamoTRIgine 25 MG TABLET PO (22:08)
[2023-08-16 08:00] VITALS: BP 94/53; PULSE 85; RESP 18; TEMP 36.4; O2SAT 98
[2023-08-16] MEDS: Escitalopram Oxalate 10 MG TABLET PO (09:42)
--- NOTE | 2023-08-16 09:42 | P.PNPSI_ITS ---
Subjective Subjective Date of Service: 08/16/23 Reason For Visit: Depression with SI Interim History: Patient seen. Reports continued depression. She is isolated. Poor PO. Denies SI. Poor self care. She has not utilized any Risperidone. Review of Systems Review of Systems As per HPI. Yes all other systems are reviewed and are negative Constitutional: Reports as per HPI Mental Status Exam Mental Status Exam Narrative: In today's visit she is alert, oriented and pleasant. Normal speech. Better eye contact. Affect is appropriate and subdued. No signs of psychosis. No active SI but vague SI. Cognitively intact. Judgment is intact Patient Appearance: Fatigued Patient Orientation: Person, Place, Time and Situation Level of Consciousness: Alert Patient Behavior: Appropriate, Talkative, Cooperative, Isolative and Good Eye Contact Mood Description: Depressed Affect Description: Flat Patient Cognition Impaired: No Ability to Follow Directions: Good Speech Pattern: Perseverating, Spontaneous Speech and Soft-Spoken Memory Description: Intact Diagnostics Vital Signs (24Hr): Vital Signs - 24 hr 08/15/23 20:10 Temperature 97.8 F Pulse Rate 90 Respiratory Rate 16 Blood Pressure 101/66 Pulse Oximetry 100 Oxygen Delivery Method Room Air BMI result Body Mass Index 18.1 Labs 08/06/23 14:19 08/06/23 14:19 Medications Medications Current Medications Acetaminophen (Acetaminophen 325 Mg Tablet) 650 mg PO Q6H PRN PRN Reason: Headache/Pain Mild Scale (1-3) Al Hydroxide/Mg Hydroxide (Magnesium Hydrox/Alum Hydrox 30 Ml Oral.Susp) 30 ml PO Q6H PRN PRN Reason: Heartburn/Nausea Escitalopram Oxalate (Escitalopram Oxalate 10 Mg Tablet) 10 mg PO DAILY [facility] Last Admin: 08/15/23 09:16 Dose: 10 mg Hydroxyzine HCl (Hydroxyzine Hcl 25 Mg Tablet) 25 mg PO Q6H PRN PRN Reason: Anxiety Lamotrigine (Lamotrigine 25 Mg Tablet) 25 mg PO BEDTIME [facility] Last Admin: 08/15/23 22:08 Dose: 25 mg Magnesium Hydroxide (Milk Of Magnesia 30 Ml Oral.Susp) 30 ml PO DAILY PRN PRN Reason: Constipation Risperidone (Risperidone 0.5 Mg Tablet) 0.5 mg PO BID PRN PRN Reason: voices, agitation Trazodone HCl (Trazodone Hcl 50 Mg Tablet) 50 mg PO BEDTIME MRX1 PRN PRN Reason: Insomnia Last Admin: 08/10/23 00:09 Dose: 50 mg Allergies Allergies Allergy/AdvReac Type Severity Reaction Status Date / Time No Known Allergies Allergy Verified 08/06/23 13:15 Assessment & Plan Assessment & Plan (1) Depression: Status: Acute Code(s): F32.A - Depression, unspecified (2) Suicidal ideation: Status: Acute Code(s): R45.851 - Suicidal ideations Plan Sara is admitted and meets criteria for IP LOC for safety and treatment. She has signed a CV which was accepted. We discussed medications and is interested in a trial of Celexa 10 mg which will be initiated. Side effects were reviewed. Contacts to be made with the collagen her therapist. She will meet with her treatment team on 08/11/23 08/10/2023: Continue current regimen and plans. A 3 day notice was signed last evening 08/11/23: Continue Lexapro. Lamictal 25 mg HS. 08/12/23: Continue plan/regime. Risperdal 0.5 mg bid prn voices, agitation. 08/13/23: Continue tx. 08/14/23: Message left for pt's academic team to review specifications for her return Encourage increase milieu treatment. 08/15/23: Pt given specifics today regarding a return to classes. Encouraged to shower. Encouraged to trial Risperdal prn to assess efficacy on sx mgt. 08/15: continue current management and treatment plan. Reason for continued inpatient stay Substantial Risk for: harm to self, inability to function and rapid decompensation Time Spent With Patient Time: Total time managing care of this patient today ____ minutes.
[2023-08-16 18:00] VITALS: BP 102/65; PULSE 88; RESP 18; TEMP 36.7; O2SAT 98
[2023-08-16] MEDS: lamoTRIgine 25 MG TABLET PO (22:09)
[2023-08-17 08:58] VITALS: BP 91/55; PULSE 63; RESP 16; TEMP 36.4; O2SAT 98
--- NOTE | 2023-08-17 09:00 | HO.PSYCHPN ---
Subjective Subjective Date of Service: 08/17/23 Reason For Visit: Depression with SI Interim History: Patient seen. Reports continued depression. She is isolated. Poor PO. Denies SI. Poor self care. She reports hallucinations. She was encouraged to take Risperidone. She says she is a night owl which is why she stays in bed during the day. She ate dinner although didn't eat during the day yesterday. She has not utilized any Risperidone. Review of Systems Review of Systems As per HPI. Yes all other systems are reviewed and are negative Constitutional: Reports as per HPI Mental Status Exam Mental Status Exam Narrative: In today's visit she is alert, oriented and pleasant. Normal speech. Better eye contact. Affect is appropriate and subdued. No signs of psychosis. No active SI but vague SI. Cognitively intact. Judgment is intact Patient Appearance: Fatigued Patient Orientation: Person, Place, Time and Situation Level of Consciousness: Alert Patient Behavior: Appropriate, Talkative, Cooperative, Isolative and Good Eye Contact Mood Description: Depressed Affect Description: Flat Patient Cognition Impaired: No Ability to Follow Directions: Good Speech Pattern: Perseverating, Spontaneous Speech and Soft-Spoken Memory Description: Intact Diagnostics Vital Signs (24Hr): Vital Signs - 24 hr 08/16/23 18:00 08/17/23 08:58 Temperature 98.0 F 97.5 F Pulse Rate 88 63 Respiratory Rate 18 16 Blood Pressure 102/65 91/55 L Pulse Oximetry 98 98 Oxygen Delivery Method Room Air Room Air BMI result Body Mass Index 18.1 Labs 08/06/23 14:19 08/06/23 14:19 Medications Medications Current Medications Acetaminophen (Acetaminophen 325 Mg Tablet) 650 mg PO Q6H PRN PRN Reason: Headache/Pain Mild Scale (1-3) Al Hydroxide/Mg Hydroxide (Magnesium Hydrox/Alum Hydrox 30 Ml Oral.Susp) 30 ml PO Q6H PRN PRN Reason: Heartburn/Nausea Escitalopram Oxalate (Escitalopram Oxalate 10 Mg Tablet) 10 mg PO DAILY [facility] Last Admin: 08/16/23 09:42 Dose: 10 mg Hydroxyzine HCl (Hydroxyzine Hcl 25 Mg Tablet) 25 mg PO Q6H PRN PRN Reason: Anxiety Lamotrigine (Lamotrigine 25 Mg Tablet) 25 mg PO BEDTIME [facility] Last Admin: 08/16/23 22:09 Dose: 25 mg Magnesium Hydroxide (Milk Of Magnesia 30 Ml Oral.Susp) 30 ml PO DAILY PRN PRN Reason: Constipation Risperidone (Risperidone 0.5 Mg Tablet) 0.5 mg PO BID PRN PRN Reason: voices, agitation Trazodone HCl (Trazodone Hcl 50 Mg Tablet) 50 mg PO BEDTIME MRX1 PRN PRN Reason: Insomnia Last Admin: 08/10/23 00:09 Dose: 50 mg Allergies Allergies Allergy/AdvReac Type Severity Reaction Status Date / Time No Known Allergies Allergy Verified 08/06/23 13:15 Assessment & Plan Assessment & Plan (1) Depression: Status: Acute Code(s): F32.A - Depression, unspecified (2) Suicidal ideation: Status: Acute Code(s): R45.851 - Suicidal ideations Plan Sara is admitted and meets criteria for IP LOC for safety and treatment. She has signed a CV which was accepted. We discussed medications and is interested in a trial of Celexa 10 mg which will be initiated. Side effects were reviewed. Contacts to be made with the collagen her therapist. She will meet with her treatment team on 08/11/23 08/10/2023: Continue current regimen and plans. A 3 day notice was signed last evening 08/11/23: Continue Lexapro. Lamictal 25 mg HS. 08/12/23: Continue plan/regime. Risperdal 0.5 mg bid prn voices, agitation. 08/13/23: Continue tx. 08/14/23: Message left for pt's academic team to review specifications for her return Encourage increase milieu treatment. 08/15/23: Pt given specifics today regarding a return to classes. Encouraged to shower. Encouraged to trial Risperdal prn to assess efficacy on sx mgt. 08/15: continue current management and treatment plan. 08/16: Changed Risperidone to scheduled at HS in addition to PRN. Reason for continued inpatient stay Substantial Risk for: harm to self, inability to function and rapid decompensation Time Spent With Patient Time: Total time managing care of this patient today ____ minutes.
[2023-08-17] MEDS: Escitalopram Oxalate 10 MG TABLET PO (09:17)
[2023-08-17 17:22] VITALS: BP 111/63; PULSE 82; RESP 16; TEMP 37.1; O2SAT 98
[2023-08-17] MEDS: lamoTRIgine 25 MG TABLET PO (22:16)
[2023-08-17] MEDS: risperiDONE 0.5 MG TABLET PO (22:16)
[2023-08-18 08:00] VITALS: BP 87/52; PULSE 58; RESP 16; TEMP 36.4; O2SAT 99
[2023-08-18] MEDS: Escitalopram Oxalate 10 MG TABLET PO (08:40)
[2023-08-18 09:24] VITALS: BP 98/65
--- NOTE | 2023-08-18 10:42 | HO.PSYCHPN ---
Subjective Subjective Date of Service: 08/18/23 Reason For Visit: Depression with SI Subjective Notes: Conditional Voluntary and 3 Day (08/21/23) Healthcare Proxy: No Guardianship: No Medical Problems Affecting Mental Status: No Interim History: Team report a difficult weekend for Sara with minimal po intake, minimal responsivness, no trial of Risperdal, not attending to ADL's, not brushing teeth, not attending psychiatric coping skills groups, telling team she was responding to internal auditory perceptual alterations. Pt asked to meet. Demanding of discharge. Review of the above concerns. Pt reports she has nothing to learn in group as she knows it all. She reports she does not feel comfortable performing ADL's on the unit-offered 1-1 female supervision, offered to bring in specific products of her choice for ADL's. She declines. Reports she is eating and was not aware she was to trial Risperdal even though this was discussed a few times last week. Pt did sign a three day notice after this was discussed. She asked what she needed to do to prepare for a successful discharge and this was reviewed. After meeting she was seen in the milieu with peers, playing cards and socializing. As a result, discharge was cancelled Medication Compliance: Intermittent Side effects from medications: No Attending Groups: Intermittent Review of Systems Acute medical concerns: No Medical Review of Systems: unchanged Review of Systems Review of Systems Yes all other systems are reviewed and are negative (denies) Mental Status Exam Mental Status Exam Patient Appearance: Fatigued, Disheveled, Unkempt and Malodorous Patient Orientation: Person, Place, Time and Situation Level of Consciousness: Sedated, Restless and Alert Patient Behavior: Guarded, Talkative, Cooperative, Suspicious, Restless, Anxious, Avoidant, Fatigued, Distractible, Isolative and Good Eye Contact Mood Description: Depressed Affect Description: Flat Patient Cognition Impaired: No Ability to Follow Directions: Good Speech Pattern: Spontaneous Speech Memory Description: Episodic Impaired Hallucinations: Auditory Perceptual Disturbances: Depersonalization and Derealization Thought Process: Rumination Thought Content: positive for Circumstantial and positive for Suicidal Ideation (chronic, persistant) Depressive Symptoms: Increased Anxiety, Increased Irritability, Sleeping More Than Usual, Thoughts of /Suicide (chronic, persistent) and Difficulty Concentrating Abnormal Motor Activity Signs and Symptoms: Restlessness Judgement: Poor Diagnostics Vital Signs (24Hr): Vital Signs - 24 hr 08/17/23 17:22 08/18/23 08:00 08/18/23 09:24 Temperature 98.7 F 97.5 F Pulse Rate 82 58 Respiratory Rate 16 16 Blood Pressure 111/63 87/52 L 98/65 Pulse Oximetry 98 99 Oxygen Delivery Method Room Air Nasal Cannula BMI result Body Mass Index 18.1 Labs 08/06/23 14:19 08/06/23 14:19 Medications Medications Current Medications Acetaminophen (Acetaminophen 325 Mg Tablet) 650 mg PO Q6H PRN PRN Reason: Headache/Pain Mild Scale (1-3) Al Hydroxide/Mg Hydroxide (Magnesium Hydrox/Alum Hydrox 30 Ml Oral.Susp) 30 ml PO Q6H PRN PRN Reason: Heartburn/Nausea Escitalopram Oxalate (Escitalopram Oxalate 10 Mg Tablet) 10 mg PO DAILY [facility] Last Admin: 08/18/23 08:40 Dose: 10 mg Hydroxyzine HCl (Hydroxyzine Hcl 25 Mg Tablet) 25 mg PO Q6H PRN PRN Reason: Anxiety Lamotrigine (Lamotrigine 25 Mg Tablet) 25 mg PO BEDTIME [facility] Last Admin: 08/17/23 22:16 Dose: 25 mg Magnesium Hydroxide (Milk Of Magnesia 30 Ml Oral.Susp) 30 ml PO DAILY PRN PRN Reason: Constipation Risperidone (Risperidone 0.5 Mg Tablet) 0.5 mg PO BID [facility] Trazodone HCl (Trazodone Hcl 50 Mg Tablet) 50 mg PO BEDTIME MRX1 PRN PRN Reason: Insomnia Last Admin: 08/10/23 00:09 Dose: 50 mg Allergies Allergies Allergy/AdvReac Type Severity Reaction Status Date / Time No Known Allergies Allergy Verified 08/06/23 13:15 Assessment & Plan Assessment & Plan (1) Depression: Status: Acute Code(s): F32.A - Depression, unspecified (2) Suicidal ideation: Status: Acute Code(s): R45.851 - Suicidal ideations Plan Sara is admitted and meets criteria for IP LOC for safety and treatment. She has signed a CV which was accepted. We discussed medications and is interested in a trial of Celexa 10 mg which will be initiated. Side effects were reviewed. Contacts to be made with the collagen her therapist. She will meet with her treatment team on 08/11/23 08/10/2023: Continue current regimen and plans. A 3 day notice was signed last evening 08/11/23: Continue Lexapro. Lamictal 25 mg HS. 08/12/23: Continue plan/regime. Risperdal 0.5 mg bid prn voices, agitation. 08/13/23: Continue tx. 08/14/23: Message left for pt's academic team to review specifications for her return Encourage increase milieu treatment. 08/15/23: Pt given specifics today regarding a return to classes. Encouraged to shower. Encouraged to trial Risperdal prn to assess efficacy on sx mgt. 08/15: continue current management and treatment plan. 08/16: Changed Risperidone to scheduled at HS in addition to PRN. 08/17: Risperdal 0.5 mg bid and prn Three day notice filed today Patient educated on: diagnosis, medication risk/benefits and therapeutic strategies Informed Consent: further education needed Reason for continued inpatient stay Substantial Risk for: rapid decompensation Time Spent With Patient Time: Total time managing care of this patient today ____ minutes.
[2023-08-18 18:00] VITALS: BP 103/61; PULSE 94; TEMP 36.2; O2SAT 99
[2023-08-18] MEDS: risperiDONE 0.5 MG TABLET PO (21:35)
[2023-08-18] MEDS: lamoTRIgine 25 MG TABLET PO (21:35)
[2023-08-19 08:00] VITALS: BP 130/78; PULSE 62; RESP 18; TEMP 36.6; O2SAT 99
[2023-08-19] MEDS: Escitalopram Oxalate 10 MG TABLET PO (09:01)
[2023-08-19] MEDS: risperiDONE 0.5 MG TABLET PO ×2 (09:01→22:47)
--- NOTE | 2023-08-19 12:26 | P.PNPSI_ITS ---
Subjective Subjective Date of Service: 08/19/23 Reason For Visit: Depression with SI Subjective Notes: 3 Day Healthcare Proxy: No Guardianship: No Medical Problems Affecting Mental Status: No Interim History: Pt remains somewhat isolative and withdrawn. She will attend structured groups, art group, fresh air group. She refused process groups- I know all of this. Accepting meds, denies side effects. Medication Compliance: Yes Side effects from medications: No Attending Groups: Intermittent Review of Systems Acute medical concerns: No Medical Review of Systems: unchanged Review of Systems Review of Systems Yes all other systems are reviewed and are negative Mental Status Exam Mental Status Exam Patient Appearance: Appropriate Patient Orientation: Person, Place, Time and Situation Level of Consciousness: Alert Patient Behavior: Talkative, Cooperative, Avoidant, Distractible, Isolative and Good Eye Contact Mood Description: Constricted Affect Description: Constricted Patient Cognition Impaired: No Ability to Follow Directions: Good Speech Pattern: Spontaneous Speech Memory Description: Episodic Impaired Hallucinations: Auditory (denies) Perceptual Disturbances: Depersonalization and Derealization Thought Content: positive for Circumstantial and positive for Suicidal Ideation (chronic, persistant) Depressive Symptoms: Increased Anxiety, Sleeping More Than Usual and Thoughts of /Suicide (chronic, persistent) Judgement: Fair Diagnostics Vital Signs (24Hr): Vital Signs - 24 hr 08/18/23 18:00 08/19/23 08:00 Temperature 97.1 F 97.8 F Pulse Rate 94 62 Respiratory Rate 18 Blood Pressure 103/61 130/78 Pulse Oximetry 99 99 Oxygen Delivery Method Room Air Room Air BMI result Body Mass Index 18.1 Labs 08/06/23 14:19 08/06/23 14:19 Medications Medications Current Medications Acetaminophen (Acetaminophen 325 Mg Tablet) 650 mg PO Q6H PRN PRN Reason: Headache/Pain Mild Scale (1-3) Al Hydroxide/Mg Hydroxide (Magnesium Hydrox/Alum Hydrox 30 Ml Oral.Susp) 30 ml PO Q6H PRN PRN Reason: Heartburn/Nausea Escitalopram Oxalate (Escitalopram Oxalate 10 Mg Tablet) 10 mg PO DAILY [facility] Last Admin: 08/19/23 09:01 Dose: 10 mg Hydroxyzine HCl (Hydroxyzine Hcl 25 Mg Tablet) 25 mg PO Q6H PRN PRN Reason: Anxiety Lamotrigine (Lamotrigine 25 Mg Tablet) 25 mg PO BEDTIME [facility] Last Admin: 08/18/23 21:35 Dose: 25 mg Magnesium Hydroxide (Milk Of Magnesia 30 Ml Oral.Susp) 30 ml PO DAILY PRN PRN Reason: Constipation Risperidone (Risperidone 0.5 Mg Tablet) 0.5 mg PO BID [facility] Last Admin: 08/19/23 09:01 Dose: 0.5 mg Trazodone HCl (Trazodone Hcl 50 Mg Tablet) 50 mg PO BEDTIME MRX1 PRN PRN Reason: Insomnia Last Admin: 08/10/23 00:09 Dose: 50 mg Allergies Allergies Allergy/AdvReac Type Severity Reaction Status Date / Time No Known Allergies Allergy Verified 08/06/23 13:15 Assessment & Plan Assessment & Plan (1) Depression: Status: Acute Code(s): F32.A - Depression, unspecified (2) Suicidal ideation: Status: Acute Code(s): R45.851 - Suicidal ideations Plan Sara is admitted and meets criteria for IP LOC for safety and treatment. She has signed a CV which was accepted. We discussed medications and is interested in a trial of Celexa 10 mg which will be initiated. Side effects were reviewed. Contacts to be made with the collagen her therapist. She will meet with her treatment team on 08/11/23 08/10/2023: Continue current regimen and plans. A 3 day notice was signed last evening 08/11/23: Continue Lexapro. Lamictal 25 mg HS. 08/12/23: Continue plan/regime. Risperdal 0.5 mg bid prn voices, agitation. 08/13/23: Continue tx. 08/14/23: Message left for pt's academic team to review specifications for her return Encourage increase milieu treatment. 08/15/23: Pt given specifics today regarding a return to classes. Encouraged to shower. Encouraged to trial Risperdal prn to assess efficacy on sx mgt. 08/15: continue current management and treatment plan. 08/16: Changed Risperidone to scheduled at HS in addition to PRN. 08/17: Risperdal 0.5 mg bid and prn Three day notice filed today 08/18: Continue regime Informed Consent: understands and further education needed Reason for continued inpatient stay Substantial Risk for: harm to self and rapid decompensation Time Spent With Patient Time: Total time managing care of this patient today ____ minutes.
[2023-08-19 16:15] VITALS: BP 93/57; PULSE 91; TEMP 36.9; O2SAT 98
[2023-08-19] MEDS: lamoTRIgine 25 MG TABLET PO (22:46)
[2023-08-20 09:02] VITALS: BP 87/50; PULSE 88; RESP 16; TEMP 36.5; O2SAT 98
[2023-08-20] MEDS: risperiDONE 0.5 MG TABLET PO ×2 (10:12→22:05)
[2023-08-20] MEDS: Escitalopram Oxalate 10 MG TABLET PO (10:12)
--- NOTE | 2023-08-20 14:34 | HO.PSYCHPN ---
Subjective Subjective Date of Service: 08/20/23 Reason For Visit: Depression with SI Subjective Notes: 3 Day Healthcare Proxy: No Guardianship: No Medical Problems Affecting Mental Status: No Interim History: Pt reports she is prepared for discharge. She denies current symptoms. Denies SI, auditory perceptual alterations. She will return to [facility] and begin work on completing her coursework. She reports feeling prepared to begin this process. Denies med SE. Reports groups are not helpful as she knows all of the information from her coursework. Team reports pt is eating and attending to ADL's. Medication Compliance: Yes Side effects from medications: No Attending Groups: Intermittent Review of Systems Acute medical concerns: No Medical Review of Systems: unchanged Review of Systems Review of Systems Yes all other systems are reviewed and are negative (pt denies current sx) Mental Status Exam Mental Status Exam Patient Appearance: Appropriate Patient Orientation: Person, Place, Time and Situation Level of Consciousness: Alert Patient Behavior: Talkative, Cooperative, Avoidant, Distractible, Isolative and Good Eye Contact Mood Description: Constricted Affect Description: Constricted Patient Cognition Impaired: No Ability to Follow Directions: Good Speech Pattern: Spontaneous Speech Memory Description: Episodic Impaired Hallucinations: Auditory (denies) Perceptual Disturbances: Depersonalization and Derealization Thought Content: positive for Circumstantial Depressive Symptoms: Increased Anxiety and Sleeping More Than Usual Judgement: Good Diagnostics Vital Signs (24Hr): Vital Signs - 24 hr 08/19/23 16:15 08/20/23 09:02 Temperature 98.4 F 97.7 F Pulse Rate 91 88 Respiratory Rate 16 Blood Pressure 93/57 L 87/50 L Pulse Oximetry 98 98 Oxygen Delivery Method Room Air Room Air BMI result Body Mass Index 18.1 Labs 08/06/23 14:19 08/06/23 14:19 Medications Medications Current Medications Acetaminophen (Acetaminophen 325 Mg Tablet) 650 mg PO Q6H PRN PRN Reason: Headache/Pain Mild Scale (1-3) Al Hydroxide/Mg Hydroxide (Magnesium Hydrox/Alum Hydrox 30 Ml Oral.Susp) 30 ml PO Q6H PRN PRN Reason: Heartburn/Nausea Escitalopram Oxalate (Escitalopram Oxalate 10 Mg Tablet) 10 mg PO DAILY [facility] Last Admin: 08/20/23 10:12 Dose: 10 mg Hydroxyzine HCl (Hydroxyzine Hcl 25 Mg Tablet) 25 mg PO Q6H PRN PRN Reason: Anxiety Lamotrigine (Lamotrigine 25 Mg Tablet) 25 mg PO BEDTIME [facility] Last Admin: 08/19/23 22:46 Dose: 25 mg Magnesium Hydroxide (Milk Of Magnesia 30 Ml Oral.Susp) 30 ml PO DAILY PRN PRN Reason: Constipation Risperidone (Risperidone 0.5 Mg Tablet) 0.5 mg PO BID [facility] Last Admin: 08/20/23 10:12 Dose: 0.5 mg Trazodone HCl (Trazodone Hcl 50 Mg Tablet) 50 mg PO BEDTIME MRX1 PRN PRN Reason: Insomnia Last Admin: 08/10/23 00:09 Dose: 50 mg Allergies Allergies Allergy/AdvReac Type Severity Reaction Status Date / Time No Known Allergies Allergy Verified 08/06/23 13:15 Assessment & Plan Assessment & Plan (1) Depression: Status: Acute Code(s): F32.A - Depression, unspecified (2) Suicidal ideation: Status: Acute Code(s): R45.851 - Suicidal ideations Plan Sara is admitted and meets criteria for IP LOC for safety and treatment. She has signed a CV which was accepted. We discussed medications and is interested in a trial of Celexa 10 mg which will be initiated. Side effects were reviewed. Contacts to be made with the [facility] her therapist. She will meet with her treatment team on 08/11/23 08/10/2023: Continue current regimen and plans. A 3 day notice was signed last evening 08/11/23: Continue Lexapro. Lamictal 25 mg HS. 08/12/23: Continue plan/regime. Risperdal 0.5 mg bid prn voices, agitation. 08/13/23: Continue tx. 08/14/23: Message left for pt's academic team to review specifications for her return Encourage increase milieu treatment. 08/15/23: Pt given specifics today regarding a return to classes. Encouraged to shower. Encouraged to trial Risperdal prn to assess efficacy on sx mgt. 08/15: continue current management and treatment plan. 08/16: Changed Risperidone to scheduled at HS in addition to PRN. 08/17: Risperdal 0.5 mg bid and prn Three day notice filed today 08/20/23: Discharge 08/20. Informed Consent: understands Reason for continued inpatient stay Substantial Risk for: stable for discharge Time Spent With Patient Time: Total time managing care of this patient today ____ minutes.
[2023-08-20 17:57] VITALS: BP 97/62; PULSE 80; TEMP 36.9; O2SAT 98
[2023-08-20] MEDS: lamoTRIgine 25 MG TABLET PO (22:05)
[2023-08-21 07:00] VITALS: BMI 18.5
[2023-08-21 09:20] VITALS: BP 84/45; PULSE 69; RESP 18; TEMP 36.5; O2SAT 97
[2023-08-21] MEDS: Escitalopram Oxalate 10 MG TABLET PO (09:29)
[2023-08-21] MEDS: risperiDONE 0.5 MG TABLET PO (09:29)
--- NOTE | 2023-08-21 14:04 | PM.PSYDC ---
DS: Providers Provider Date of Service: 08/21/23 Date of admission: 08/08/23 10:05 Date of discharge: 08/21/23 Primary care physician: Unknown Physician Admitting clinician: Pinky Meredith Attending physician on admission: Pinky Meredith Attending physician on discharge: Ari Stein Discharging clinician: Debi King DS: Diagnosis Discharge Diagnosis (1) Depression: Status: Acute (2) Suicidal ideation: Status: Resolved DS: Medications Discharge Medications Home Medications: Previous Rx's Medication Instructions Recorded escitalopram oxalate 10 mg tablet 10 mg PO DAILY #30 tabs 08/20/23 lamotrigine 25 mg tablet 25 mg PO BEDTIME #30 tabs 08/20/23 risperidone 0.5 mg tablet 0.5 mg PO BID #60 tabs 08/20/23 Mental Status Exam Mental Status Exam Patient Appearance: Appropriate Patient Orientation: Person, Place, Time and Situation Level of Consciousness: Alert Patient Behavior: Talkative, Cooperative, Avoidant, Distractible, Isolative and Good Eye Contact Mood Description: Constricted Affect Description: Constricted Patient Cognition Impaired: No Ability to Follow Directions: Good Speech Pattern: Spontaneous Speech Memory Description: Episodic Impaired Hallucinations: Auditory (denies) Perceptual Disturbances: Depersonalization and Derealization Thought Content: positive for Circumstantial Depressive Symptoms: Increased Anxiety and Sleeping More Than Usual Judgement: Good DS: Summary Hospital Course Hospital Course: Admission to adult psychiatry for exacerbation of major depression with psychotic features. Escitalopram, Lamictal, and Risperdal were initiated. Pt was able to participate some in the milieu, however was mostly focused on a return to her course work. She discharged on a three day notice and will follow up with out patient care at [facility]. Her mother will be coming to the [facility] to assist her in completing her academic year and to offer added support. Status at Discharge Functional status at discharge: independent ambulation Overall status at discharge: patient is progressing back to baseline Time Spent with Patient Time attestation: Total time managing care of this patient today ____ minutes. Time spent: Less than 30 minutes Discharge Plan Discharge Anticipated Discharge Date/Time: 08/21/23 12:00 Patient Disposition: Home, Self-Care Discharge Diagnosis: Major Depression with Psychotic Features Referrals: [facility] Therapy yanni Miles LCSW [Other] - 08/21/23 1:45 pm (This is a mandated appointment. Please bring your discharge packet to the meeting.) [facility] Medication Services [Other] - 1 Week (You can call to schedule a first visit. I also recommend talking with Adeola about the availability of psychiatry on campus. ) [facility] Intake [Other] - 08/27/23 11:00 am (TREV HERNANDEZ IN [place]) [facility] Psychiatry [Other] - 09/17/23 9:30 am (ISAIAS JAIMES, MEDICATION MANAGEMENT) Physician,Unknown J [Primary Care Provider] - 1 Week Discharge Medications: New lamotrigine 25 mg Tablet 25 mg PO BEDTIME Qty: 30 0RF risperidone 0.5 mg Tablet 0.5 mg PO BID Qty: 60 0RF escitalopram oxalate 10 mg Tablet 10 mg PO DAILY Qty: 30 0RF Discharge Orders: Discharge Order (Routine); Ordered 08/21/23 Ordered By: Debi King Diet: Advance to usual diet Activity on Discharge: As tolerated Stand Alone Forms: Patient Portal Discharge page, Community Support Print Language: Greek Care Plan Goals: Mood and Behavioral Stabilization Health Concerns: Mood and Behavioral Stabilization Plan of Treatment: Attend scheduled appointments Take medications as directed Assessment: Pt discharges today on a three day notice of intent. She has accepted medications while in patient and has refused milieu treatment stating she has knowledge of coping skills from her course work. She returns to [facility] to complete her course work for graduation. Pt interviewed prior to discharge and found to be fully oriented and without SI/HI. Pt has insight and demonstrates good judgment in terms of wanting to pursue treatment Pt is not in imminent risk of harm to self or others and has a safety plan that includes presenting to the closest ER or calling 911 if feeling unsafe. Pt has been observed closely by nursing and unit staff throughout admission Pt has not engaged in any behaviors that suggest dangerousness to self or other and has demonstrated appropriate behaviors and impulse control. Discharge Date/Time: 08/21/23 11:37
== END 2023-08-21 11:37 | disposition home or self-care (01) | DRG 751 ==
LOC: HO.ED 08-07 17:38 → HO.PM5 08-08 11:12
PROVIDERS: Registered Nurse Emergency; Admitting Provider Clinical Nurse Specialist Psychiatric/Mental Health, Adult; Emergency Provider Emergency Medicine; Visit Provider Clinical Nurse Specialist Psychiatric/Mental Health, Adult
DX: F32.3 Major depressive disorder, single episode, severe with psychotic features (principal); R45.851 Suicidal ideations; Z20.822 Contact with and (suspected) exposure to COVID-19
CPT/HCPCS: 36415; 80053; 80061; 80143; 80179; 80307; 81001; 82607; 82746; 83036; 83735; 84439; 84443; 84702; 85025; 87635; 99285; S9485

== ENCOUNTER → 2023-08-08 10:05 | Outpatient (BNV) | payer BC, SELFPAY | PROVIDERS: Admitting Provider Clinical Nurse Specialist Psychiatric/Mental Health, Adult; Emergency Provider Emergency Medicine; Visit Provider Psychiatry & Neurology Psychiatry | DX: F33.2 Major depressive disorder, recurrent severe without psychotic features (principal); R45.851 Suicidal ideations | CPT/HCPCS: 90792; 99231; 99232; 99238 ==